=== PATIENT | female | born 2000 | race Caucasian/White ===

== ENCOUNTER 2020-02-14 10:56 | Outpatient (RCR) | payer SELFPAY | END 2020-05-14 | disposition home or self-care (01) | LOC: LAB FS 10:56 | PROVIDERS: ATTEND Family Medicine | DX: O20.0 Threatened abortion (principal) | CPT/HCPCS: 36415; 84702 ==

== ENCOUNTER 2020-08-16 13:36 | Day surgery (SDC) | payer OTHER ==
[2020-08-16] VITALS (8 sets, daily range): BP systolic 86–107; BP diastolic 53–74
--- NOTE | 2020-08-16 13:40 | NUR ---
admitted to via ambulation for ectopic , to room 305 with mother, gown given.
--- NOTE | 2020-08-16 13:45 | NUR ---
dr lake to patient bedside reviewing radiology results and POC. patient tearful. verbalized understanding. 1350 lab at bedside drawing ordered labs. 1355 this RN to bedside. vitals taken. 1410 MRSA and COVID swabs obtained. 1420 consent obtained. 1435 to OR via cart with surgery staff.
[2020-08-16] MEDS ORDERED: BUPIVACAINE 0.25% 30 ML (SENSORCAINE) VIAL ONE (13:58)
[2020-08-16] MEDS ORDERED: MIDAZOLAM 2 MG/2 ML (VERSED) VIAL ONE (14:16)
[2020-08-16] MEDS ORDERED: fentaNYL INJECTION 100 MCG/2 ML AMP ONE (14:16)
[2020-08-16 14:20] LABS: BASOPHILS % (AUTO) 0 % (0-10); EOSINOPHILS % (AUTO) 0 % (0-10); HEMATOCRIT 43 % (35-52); HEMOGLOBIN 14.9 g/dL (11.5-16.0); LYMPHOCYTES # (AUTO) 1.1 10^3/uL (1.0-4.0); LYMPHOCYTES % (AUTO) 7 % (12-44); MEAN CORPUSCULAR HEMOGLOBIN 34 pg (25-34); MEAN CORPUSCULAR HGB CONC 35 g/dL (32-36); MEAN CORPUSCULAR VOLUME 97 fL (80-99); MEAN PLATELET VOLUME 8.2 fL (9.0-12.2); MONOCYTES # (AUTO) 0.7 10^3/uL (0.0-1.0); MONOCYTES % (AUTO) 5 % (0-12); NEUTROPHILS # (AUTO) 13.5 10^3/uL (1.8-7.8); NEUTROPHILS % (AUTO) 87 % (42-75); PLATELET COUNT 220 10^3/uL (130-400); WHITE BLOOD COUNT 15.5 10^3/uL (4.3-11.0)
[2020-08-16] MEDS ORDERED: proPOfol 200 MG/20 ML (DIPRIVAN) VIAL IV ONE (14:21)
[2020-08-16] MEDS ORDERED: LIDOCAINE PF 2% 5 ML (XYLOCAINE) VIAL ONE (14:21)
[2020-08-16] MEDS ORDERED: ONDANSETRON 4 MG/2 ML (SDV) Z0FRAN ONE (14:22)
--- NOTE | 2020-08-16 14:35 | History & Physical-Surgical ---
HPO-Surgical History of Present Illness Chief Complaint: Ectopic Diagnosis/Surgical Indication: Ectopic Procedure: Laparoscopic evaluation ectopic . Possible salpinectomy vs salpingotomy Date of Surgery: Aug 16, 2020 Allergies and Home Medications Patient Home Medication List Home Medication List Reviewed: Yes Past Yhulnaa-Wofeqb-Nkffbl Hx Patient Social History Marrital Status: cohabiting Alcohol Use: Denies Use Recreational Drug Use: No Smoking Status: Former Smoker Former Smoker, Quit: Jul 29, 2018 Type Used: Cigarettes Recent Foreign Travel: No Contact w/other who traveled: No Seasonal Allergies Seasonal Allergies: No Surgeries Yes Gallbladder Reproductive System : Yes Expected Date of Delivery: Mar 28, 2021 Hx : 2 Hx Para: 0 Hx Total # of Abortions (Spona: 1 Hx Reproductive Disorders: No Sexually Transmitted Disease: No HIV/AIDS: No Female Reproductive Disorders: Denies Exam Vital Signs Capillary Refill : Labs Laboratory Tests Test 08/16/20 14:07 Range/Units White Blood Count 15.5 H 4.3-11.0 10^3/uL Red Blood Count 4.40 3.80-5.11 10^6/uL Hemoglobin 14.9 11.5-16.0 g/dL Hematocrit 43 35-52 % Mean Corpuscular Volume 97 80-99 fL Mean Corpuscular Hemoglobin 34 25-34 pg Mean Corpuscular Hemoglobin Concent 35 32-36 g/dL Red Cell Distribution Width 11.7 10.0-14.5 % Platelet Count 220 130-400 10^3/uL Mean Platelet Volume 8.2 L 9.0-12.2 fL Immature Granulocyte % (Auto) 1 % Neutrophils (%) (Auto) 87 H 42-75 % Lymphocytes (%) (Auto) 7 L 12-44 % Monocytes (%) (Auto) 5 0-12 % Eosinophils (%) (Auto) 0 0-10 % Basophils (%) (Auto) 0 0-10 % Neutrophils # (Auto) 13.5 H 1.8-7.8 10^3/uL Lymphocytes # (Auto) 1.1 1.0-4.0 10^3/uL Monocytes # (Auto) 0.7 0.0-1.0 10^3/uL Eosinophils # (Auto) 0.0 0.0-0.3 10^3/uL Basophils # (Auto) 0.0 0.0-0.1 10^3/uL Immature Granulocyte # (Auto) 0.1 0.0-0.1 10^3/uL General Appearance: Alert, Oriented X3, Cooperative HEENT: Atraumatic Respiratory: Clear to Auscultation Cardiovascular: Regular Rate Abdominal: Normal Bowel Sounds Extremities: No Clubbing, No Cyanosis Skin: No Rashes Neuro: Normal Gait Psych/Mental Status: Mental Status NL Assessment/Plan Assessment and Plan P: Discussed with patient laparoscopic evaluation and treatment of ectopic, risk involved, recovery timing and potential outcomes. All questions answered, including discussion about the non-viability of this . Admission Diagnosis 20 yo @ 6 weeks gestation Ectopic - cardiac activity in the adnexa Admission Status: Observation CARROLL ROSA DO Aug 16, 2020 14:35
--- NOTE | 2020-08-16 14:39 | Discharge Inst-Women's Service ---
Discharge Inst-Women's Serv Depart Medication/Instructions New, Converted or Re-Newed RX: RX on Chart Problems Reviewed?: Yes Consults/Follow Up Additional Follow Up: Yes Orders/Referrals Dr. Kimbrough in 7-10 days Activity Activity: Activity as Tolerated Driving Instructions: No Driving for 1 Week NO SMOKING: NO SMOKING Nothing Inside Vagina: No Douching, No [place], No Tampons Diet Discharge Diet: No Restrictions Symptoms to Report to : Bleeding Excessive, Pain Increased, Fever Over 101 Degrees F, Vaginal Bleeding Increase, Questions/Concerns For Any Problems or Questions: Contact Your Physician Skin/Wound Care Infection Signs and Symptoms: Increased Redness, Foul Odor of Wound, Increased Drainage, Skin Itchy or Has a Rash, Increased Swelling, Temperature Above 101 F Operative Area Clean and Dry: Keep Incision Clean/Dry Stitches/Jewell/Dermabond: Dermabond, Care of Stitches Bathing Instructions: CARROLL Bartlett DO Aug 16, 2020 14:39
[2020-08-16] MEDS ORDERED: IBUP-1773 PO (14:40)
[2020-08-16] MEDS ORDERED: HYDR-4226 PO (14:40)
[2020-08-16] MEDS: LACTATED RINGERS 1,000 ML IV PRN ×3 (14:40→15:48)
[2020-08-16 14:41] LABS: LYMPHOCYTES % (MANUAL) 5 %; MONOCYTES % (MANUAL) 3 %; NEUTROPHILS % (MANUAL) 92 %
[2020-08-16] MEDS ORDERED: SEVOFLURANE (ULTANE) 15 ML INHAL SOLN ONE ×5 (14:42→15:26)
[2020-08-16] MEDS ORDERED: ROCURONIUM 10 MG/ML 5 ML SYRINGE IV ONE (14:43)
[2020-08-16] MEDS ORDERED: KETOROLAC 30 MG/ML VIAL IVP ONE (14:45)
[2020-08-16] MEDS ORDERED: ONDANSETRON 4 MG/2 ML (SDV) Z0FRAN IVP PRN ×2 (14:45→16:00)
[2020-08-16] MEDS ORDERED: PHENYLEPHRINE 100 MCG/ML 10 ML (ANESTHESIA) SYR ONE (15:11)
[2020-08-16] MEDS ORDERED: PROMETHAZINE INJ 25 MG/ML (PHENERGAN) AMP IVP ONE (16:00)
[2020-08-16] MEDS ORDERED: morphine INJ 10 MG/ML 1ML (SYR OR VIAL) IVP ONE (16:00)
[2020-08-16] MEDS ORDERED: MEPERIDINE (DEMEROL) INJ 50 MG/ML IVP ONE (16:00)
--- NOTE | 2020-08-16 16:16 | Anesthesia-General Post-Op ---
General Patient Condition Mental Status/LOC: Same as Preop Cardiovascular: Satisfactory Nausea/Vomiting: Absent Respiratory: Satisfactory Pain: Controlled Complications: Absent Post Op Complications Complications None Follow Up Care/Instructions Patient Instructions None needed. Anesthesia/Patient Condition Patient Condition Patient is doing well, no complaints, stable vital signs, no apparent adverse anesthesia problems. No complications reported per nursing. JAIME QUEZADA CRNA Aug 16, 2020 16:16
--- NOTE | 2020-08-16 16:45 | NUR ---
to room 305 postop laparoscopic surgery. mother at bedside. opsites x3 d/I. warm blanket given per patient c/o of being cold. rom temp increased to 74F.
[2020-08-16] MEDS: HYDROcodone/APAP 5 MG/325 MG (LORTAB) TAB PO PRN (17:30)
[2020-08-16] MEDS: D5 LR IV SOLUTION 1,000 ML IV SCH (17:43)
--- NOTE | 2020-08-16 17:45 | NUR ---
assisted up to bathroom. spontaneous void. steady gait. denies dizziness or lightheadednes.ss
--- NOTE | 2020-08-16 18:15 | NUR ---
resting quietly eating dinner. assisted up to bathroom with standby assistance. spontaneous void. no s/s of distress. ambulated back to bed independently. continuing to monitor.
--- NOTE | 2020-08-16 20:00 | NUR ---
Pt resting in bed. Mother at bedside. pt denies any nausea or discomfort. Pt wishes to stay tonight. blankets brought in room for mother. Ice water refilled. Pt denies any needs. Will continue to monitor.
[2020-08-16] MEDS ORDERED: IBUPROFEN 600 MG (MOTRIN) TAB PO ONE (21:18)
[2020-08-16] MEDS: IBUPROFEN 600 MG (MOTRIN) TAB PO PRN (21:22)
[2020-08-17 01:22] VITALS: BP 88/51
[2020-08-17] MEDS: D5 LR IV SOLUTION 1,000 ML IV SCH (01:46)
[2020-08-17] MEDS: HYDROcodone/APAP 5 MG/325 MG (LORTAB) TAB PO PRN ×2 (01:49→08:25)
[2020-08-17 08:00] VITALS: BP 96/53
--- NOTE | 2020-08-17 08:00 | NUR ---
A.M. ASSESSMENT COMPLETED. VSS. PT'S MOM AT BEDSIDE EATING BREAKFAST. PT DOESN'T CARE FOR HER MEAL BUT DECLINED OFFER OF SOMETHING DIFFERENT. INFORMED OF ORDERS TO GO HOME AND QUESTIONING IF SHE WILL SEE THE DOCTOR FIRST. PT'S DISCHARGE ORDERS HAD BEEN IN LAST EVENING BUT HER MOTHER WANTED HER TO STAY.
--- NOTE | 2020-08-17 08:05 | NUR ---
SCANT SPOT OF PINK BLOOD ON PAD. NO ACTIVE BLEEDING NOTED.
[2020-08-17] MEDS: IBUPROFEN 600 MG (MOTRIN) TAB PO PRN (08:25)
--- NOTE | 2020-08-17 08:25 | NUR ---
LORTAB 5/325 1 TAB P.O. FOR C/O CRAMPING AND SORE ABDOMEN RATED 4/10.
--- NOTE | 2020-08-17 09:30 | NUR ---
WATCHING TV. PT'S MOM ASLEEP AT BEDSIDE. PREPARING DISCHARGE.
--- NOTE | 2020-08-17 10:25 | NUR ---
DISCHARGE INSTRUCTIONS REVIEWED WITH COPY TO PT. RXS GIVEN. STATES UNDERSTANDING OF ALL INSTRUCTIONS AND NEED TO F/U INSTRUCTED AND NEEDED.
[2020-08-17 10:45] VITALS: BP 96/53
--- NOTE | 2020-08-17 10:45 | NUR ---
DISMISSED VIA W/C FROM [facility] IN STABLE CONDITION TO FAMILY CAR ACC BY MOTHER AND KIKI LIRIANO RN.
--- NOTE | 2020-08-22 18:52 | OPERATIVE REPORT ---
DATE OF SERVICE: PREOPERATIVE DIAGNOSIS: A 20-year-old female with ectopic . POSTOPERATIVE DIAGNOSIS: A 20-year-old female with ectopic . PROCEDURE: Laparoscopic right salpingectomy. SURGEON: Lázaro Kimbrough DO ANESTHESIA: General endotracheal. ESTIMATED BLOOD LOSS: 250 mL. URINE OUTPUT: 50 mL clear at the end of the procedure. FLUIDS: 1500 mL lactated Ringer's solution. FINDINGS: Evidence hematosalpinx and significant amount of dried clotted blood in the pelvis. Grossly normal appearing uterus, right ovary, left ovary and left fallopian tube abnormally dilated and right fallopian tube with evidence of ectopic . SPECIMEN SENT: Right fallopian tube. INDICATIONS FOR PROCEDURE: This 20-year-old female patient was admitted to the Emergency Department actually was sent from primary care provider and then directly admitted. She had the diagnosis of ectopic with heartbeat noted in the adnexa. I discussed with the patient, this was a nonviable and a life-threatening situation to her. Risks of procedure of removal of this ectopic was discussed including the possible removal of fallopian tube. After all of her questions were answered, consent was obtained, the patient was taken to the operating room. OPERATIVE REPORT IN DETAIL: Once in the operating room, anesthesia was found to be adequate. She was placed in dorsal lithotomy position, prepped and draped in normal sterile fashion. Timeout was performed and a Montaño catheter was placed using sterile technique. A weighted speculum was inserted in the patient's vagina. Right angle retractor was used to visualize the cervix, which was grasped at 12 o'clock position using a long Allis clamp. I then gently sound the uterine cavity, depth was found to be 8 cm. I then selected a Go!Foton uterine manipulator and sounded to a depth of 8 cm. I put the balloon into the uterus deploying the balloon and removed all the other instruments from the patient's vagina, performed a change of gloves and took my attention to the abdomen where infraumbilically I infiltrated this area using 0.25% Marcaine and make a 5 mm incision with a knife and then directed Veress needle through the incision, intraperitoneal placement was confirmed using saline drop test. Opening pressure of 2 mmHg was noted. I proceeded to max pressure of 15 mmHg, at which point I removed the Veress needle and introduced a 5 mm laparoscopic trocar. I am able to confirm intraperitoneal placement using the laparoscope. There was no evidence of damage from entry site. I then had the patient placed in steep Trendelenburg where I am able to visualize all my pelvic anatomy as defined in my findings above. I placed a 12 mm trocar suprapubically under direct visualization and laparoscope. Once this trocar was in place, I am able to suction irrigate the blood lost from the rupturing and aborting fallopian tube. Bleeding from the tube appears to be stable; however, the distention of the tube appears to be causing a deep dark color to it consistent with possible necrosis. Therefore, I decided to remove the fallopian tube at that point, due to risk of recurrent ectopic on that side. Starting at the proximal isthmic portion, I used LigaSure bipolar grasper, which I grasped the proximal isthmic portion, bipolar cauterized and transected using the LigaSure. I then took this down the mesosalpinx, amputating the fallopian tube from its surrounding blood supply. I then removed the fallopian tubes through an Endopouch bag and the 12 mm trocar site after which there was no active bleeding noted from any of my dissection planes. I copiously irrigated the pelvis once again using normal saline. I then had the patient taken out of steep Trendelenburg where I removed both the trocars after I released insufflation. 10 mL of 0.25% Marcaine is introduced in the peritoneal cavity for postoperative pain management through the trocar sites before they are removed. I then reapproximated the fascia of the larger trocar site using 0 Vicryl suture in a [id number] fashion. I then closed the skin of both trocar sites using 4-0 Monocryl in interrupted subcuticular stitches. Dermabond was applied to incision and Band-Aids were placed over the incisions as well. Kronner uterine manipulator was removed. Montaño catheter was removed. The patient tolerated the procedure well and was taken to recovery area in stable condition. Lap and sponge counts were correct at the end of procedure. Instrument counts correct as well. Job ID: [id number] DocumentID: [id number] Dictated Date: 08/22/2020 13:18:35 Trash Collector Date: 08/22/2020 18:52:28 Dictated By: DO GAVIN CORMIER
== END 2020-08-17 10:45 | disposition home or self-care (01) ==
LOC: SDC 13:36 → WS 13:37 → SDC 08-17 10:45
PROVIDERS: ATTEND Obstetrics & Gynecology
DX: O00.101 Right tubal pregnancy without intrauterine pregnancy (principal); Z87.891 Personal history of nicotine dependence; Z20.828 Contact with and (suspected) exposure to other viral communicable diseases
CPT/HCPCS: 59151; 85007; 85027; 86850; 86900; 86901; 87081; 88305; U0002; 36415; 87635

== ENCOUNTER → 2021-05-22 | Outpatient (CLI) | payer MEDICAID ==
[~2021-05-22] MED LIST: HYDR-4226 PO; IBUP-1773 PO
--- NOTE | 2021-05-22 13:46 | Diagnostic Imaging Report ---
INDICATION: Right hip pain. COMPARISON: None available. TECHNIQUE: Two radiographs of the right hip dated 05/22/2021. FINDINGS: No acute fracture or dislocation. No destructive osseous process. The right femoral head maintains its normal shape and contour. The right hip joint space is well maintained. Right sacroiliac joint is intact. No suspicious radiopaque foreign body. IMPRESSION: Unremarkable examination without acute osseous abnormality. Dictated by: Dictated on workstation # [id number]
== END ==
LOC: RAD FS 09:25
PROVIDERS: ATTEND Nurse Practitioner
DX: M25.551 Pain in right hip (principal)
CPT/HCPCS: 73502

== ENCOUNTER → 2021-06-13 | Outpatient (CLI) | payer MEDICAID | LOC: LAB FS 09:19 | PROVIDERS: ATTEND Obstetrics & Gynecology | DX: Z36.89 Encounter for other specified antenatal screening (principal) | CPT/HCPCS: 36415; 84702 ==

== ENCOUNTER → 2021-06-17 | Outpatient (CLI) | payer MEDICAID | LOC: LAB FS 16:46 | PROVIDERS: ATTEND Obstetrics & Gynecology | DX: Z36.89 Encounter for other specified antenatal screening (principal) | CPT/HCPCS: 36415; 84702 ==

== ENCOUNTER → 2022-12-23 | Outpatient (CLI) | payer MEDICAID | LOC: LAB FS 16:05 | PROVIDERS: ATTEND Obstetrics & Gynecology | DX: N91.2 Amenorrhea, unspecified (principal) | CPT/HCPCS: 36415; 84144; 84702 ==

== ENCOUNTER → 2022-12-25 | Outpatient (CLI) | payer MEDICAID | LOC: LAB FS 15:08 | PROVIDERS: ATTEND Obstetrics & Gynecology | DX: N91.2 Amenorrhea, unspecified (principal) | CPT/HCPCS: 36415; 84702 ==

== ENCOUNTER 2023-08-15 10:49 | Outpatient (CLI) | payer MEDICAID ==
[~2023-08-15] VITALS: Ht 154.9 cm; Wt 86.9 kg
[2023-08-15 11:05] VITALS: BP 128/79
[2023-08-15 11:15] VITALS: BP 128/79
[2023-08-15 11:19] LABS: BILIRUBIN,URINE NEGATIVE (NEGATIVE); CLARITY,URINE SLIGHTLY CLOUDY; COLOR,URINE YELLOW; GLUCOSE, URINE (UA) NEGATIVE (NEGATIVE); KETONES,URINE NEGATIVE (NEGATIVE); NITRITE,URINE NEGATIVE (NEGATIVE); PROTEIN,URINE NEGATIVE (NEGATIVE)
[2023-08-15 11:20] LABS: BACTERIA,URINE MODERATE /HPF; LEUKOCYTE ESTERASE ,URINE 1+ (NEGATIVE); RBC,URINE RARE /HPF; WBC,URINE RARE /HPF; YEAST,URINE FEW /HPF
--- NOTE | 2023-08-15 16:21 | OB Triage Report ---
Standard Progress Note Progress Notes/Assess & Plan Date Seen by a Provider: Aug 15, 2023 Time Seen by a Provider: 14:00 Expected Date of Delivery: Aug 30, 2023 Gestational Age in Weeks: 37 Gestational Age in Days: 6 LMP/PARMJIT Comment: As above Progress/Assessment & Plan L&D Triage:: Chief Complaint: Contractions HPI: Patient is a EDC 08/30/23 @ 37 6/7 weeks presents for rule out labor. She was seen in the office two days ago and had her membranes stripped at that time, her cervix was 3 cm at that encounter. Reports regular and mild contractions. No other complaints. VSS/AF. UA with many epithelial cells, negative nitrites. Patient has no UTI symptoms. She was placed on the monitor and noted to have a reactive NST Category I per OB RN. Initially contractions q2-6 minutes but then spaced out to q 6-12 minutes apart and mild. Patient is GBS negative. Cervical exam by OB RN is 3/60-70/-1 (no change from office visit). She is released to home with routine OB precautions. She is instructed to keep her OB office appointment scheduled for tomorrow. Patient left without any questions or concerns. Final Diagnosis 37 weeks Third Trimester Not in Labor DANNI MARTINEZ DO Aug 15, 2023 16:21
== END 2023-08-15 12:53 | disposition home or self-care (01) ==
LOC: WSo 10:49 → LDRP 10:50 → WSo 12:53
PROVIDERS: ATTEND Obstetrics & Gynecology
DX: O62.9 Abnormality of forces of labor, unspecified (principal); Z3A.37 37 weeks gestation of pregnancy
CPT/HCPCS: 81000; 87088; 99213